=== PATIENT | male | born 1950 | race Two or more races ===

== ENCOUNTER 2018-10-31 11:28 | Emergency (ER) | payer OTHER ==
[~2018-10-31] VITALS: Ht 180.3 cm; Wt 99.8 kg
[~2018-10-31 11:28] MED LIST: AML5T PO; B COTAB20 OR; BACL10TA PO; BIOT5TAB3 PO; DIPH25CA39 PO; DOC100C PO; FLAX12003 PO; GUAI1TAB25 PO; LAC30LQ GT; MULTTAB99 GT; NOR10T GT; OMEP20CA74 OR; SIMV-8 PO; [UNRECOGNIZED DRUG - CODE] OR
[2018-10-31 12:31] LABS: Basophils # (auto) 0 uL; Basophils % (auto) 0.1 % (0.0-2.0); Eosinophils # (auto) 0.1 uL; Eosinophils % (auto) 0.6 % (0.0-7.0); Hematocrit 36.6 % (41.0-53.0); Hemoglobin 12.2 g/dL (13.5-17.5); Lymphocytes # (auto) 1.6 uL; Lymphocytes % (auto) 17.3 % (10.0-50.0); Mean Corpuscular Hemoglobin 30.5 pg (28.0-32.0); Mean Corpuscular Hgb Conc. 33.3 g/dL (32.0-36.0); Mean Corpuscular Volume 91.5 fL (80.0-100.0); Monocytes # (auto) 0.6 uL; Monocytes % (auto) 6.7 % (0.0-12.0); Neutrophils # (auto) 6.8 uL; Neutrophils % (auto) 75.3 % (37.0-80.0); Platelet Count (auto) 377 10^3/uL (140-450); Red Cell Distribution Width 16.2 % (11.8-14.3); White Blood Cell 9.1 10^3/uL (4.4-10.8)
[2018-10-31 12:44] LABS: INR 0.99 (0.9-1.15); Prothrombin Time 10.6 sec (9.27-12.13)
[2018-10-31 12:48] LABS: Albumin 3.3 g/dL (3.4-5.0); BUN/Creatinine Ratio 11.8; Calcium 8.9 mg/dL (8.5-10.1)
[2018-10-31 12:50] LABS: Bilirubin, Total 0.6 mg/dL (0.2-1.0); Total Protein 8.6 g/dL (6.4-8.2)
[2018-10-31] MEDS ORDERED: IOHEXOL 300 MG/ML 100ML BOTTLE IJ ONE (13:59)
[2018-10-31] MEDS ORDERED: LORA-154 PO (15:00)
[2018-10-31] MEDS ORDERED: SIMV-8 PO (15:00)
[2018-10-31] MEDS ORDERED: AMLO5TAB13 PO (15:00)
[2018-10-31] MEDS ORDERED: TAM04C PO (15:00)
[2018-10-31 15:29] VITALS: BP 116/77
== END 2018-10-31 15:36 | disposition short-term general hospital (02) ==
LOC: ER 11:28
DX: R04.2 Hemoptysis (principal); R53.1 Weakness; R06.02 Shortness of breath; K21.9 Gastro-esophageal reflux disease without esophagitis; E78.5 Hyperlipidemia, unspecified; I12.9 Hypertensive chronic kidney disease with stage 1 through stage 4 chronic kidney disease, or unspecified chronic kidney disease; N18.9 Chronic kidney disease, unspecified; Z88.0 Allergy status to penicillin; Z88.1 Allergy status to other antibiotic agents; Z79.899 Other long term (current) drug therapy
CPT/HCPCS: 36415; 71045; 71260; 74177; 80053; 84484; 85025; 85610; 85730; 93005; 94761; 99291; Q9967